=== PATIENT | female | born 1985 | race African-American/Black ===

== ENCOUNTER 2024-03-07 06:51 | Emergency (ER) | payer SELFPAY ==
[~2024-03-07] VITALS: Ht 160 cm; Wt 73.0 kg
[2024-03-07] MEDS ORDERED: ONDANSETRON HCL/PF 4 MG/2 ML VIAL ONE ×2 (07:26→10:38)
[2024-03-07] MEDS ORDERED: HYDROMORPHONE 1 MG/1 ML DISP.SYRIN ONE ×3 (07:27→10:38)
[2024-03-07] MEDS ORDERED: diphenhydrAMINE HCL 25 MG in IV D5W 50 ML IV ONE ×2 (07:30→11:00)
[2024-03-07 07:56] LABS: BASOPHILS % (AUTO) 0.5 % (0.0-2.0); EOSINOPHILS # (AUTO) 0.3 K/uL (0.0-0.7); EOSINOPHILS % (AUTO) 4.7 % (0.0-6.0); HEMATOCRIT 27 % (33-45); HEMOGLOBIN 8.1 g/dL (11.5-14.8); LYMPHOCYTES # (AUTO) 2.3 K/uL (0.8-4.8); LYMPHOCYTES % (AUTO) 38.7 % (20.0-44.0); MEAN CORPUSCULAR HEMOGLOBIN 24 PG (26.0-33.0); MEAN CORPUSCULAR HGB CONC 30 g/dl (31.0-36.0); MEAN CORPUSCULAR VOLUME 79 fL (82-100); MONOCYTES # (AUTO) 0.3 K/uL (0.1-1.30); MONOCYTES % (AUTO) 5.5 % (2.0-12.0); NEUTROPHILS # (AUTO) 3.1 K/uL (1.8-8.9); NEUTROPHILS % (AUTO) 50.6 % (43.0-81.0); PLATELET COUNT (AUTO) 335 K/uL (150-450); RED BLOOD CELL COUNT(AUTO) 3.43 MIL/uL (4.0-5.2); RED CELL DISTRIBUTION WIDTH 16.4 % (11.5-15.0); WHITE BLOOD COUNT (AUTO) 6.1 K/uL (4.3-11.0)
[2024-03-07] MEDS ORDERED: diphenhydrAMINE HCL 50 MG/ML VIAL ONE ×2 (07:57→10:38)
[2024-03-07] MEDS: IV NS 0.9% 1,000 ML BAG IV ONE (08:00)
[2024-03-07 08:01] LABS: ALBUMIN 2.8 g/dL (3.4-5.0); BILIRUBIN,DIRECT 0.1 mg/dL (0.0-0.2); BILIRUBIN,TOTAL 0.3 mg/dL (0.2-1.0); CALCIUM, SERUM 8.5 mg/dL (8.5-10.1); CREATININE 0.8 mg/dL (0.6-1.3); POTASSIUM 3.6 mmol/L (3.5-5.1); TOTAL PROTEIN, SERUM 6.6 g/dL (6.4-8.2)
[2024-03-07] MEDS: ONDANSETRON HCL/PF 4 MG/2 ML VIAL IVP ONE (08:05)
[2024-03-07] MEDS: diphenhydrAMINE HCL 50 MG/ML VIAL IV ONE ×2 (08:05→10:45)
[2024-03-07] MEDS: HYDROMORPHONE INJ 2 MG/ML DISP.SYRIN IV ONE (08:05)
[2024-03-07] MEDS: HYDROMORPHONE MDV 1 MG in IV D5W 50 ML IV ONE (10:03)
[2024-03-07] MEDS: HYDROMORPHONE MDV 2 MG in IV D5W 50 ML IV ONE (10:45)
[2024-03-07] MEDS: ONDANSETRON HCL/PF - ER 4 MG/2 ML VIAL IV ONE (10:45)
[2024-03-07] MEDS: HYDROMORPHONE 1 MG/1 ML DISP.SYRIN IV ONE (10:48)
[2024-03-07] MEDS ORDERED: ONDA4TAB11 PO (11:51)
[2024-03-07 12:16] VITALS: BP 138/74; TEMP 98.8; O2SAT 99
== END 2024-03-07 12:17 | disposition home or self-care (01) ==
LOC: ER 06:58
DX: D57.00 Hb-SS disease with crisis, unspecified (principal); Z88.5 Allergy status to narcotic agent; Z88.1 Allergy status to other antibiotic agents
CPT/HCPCS: 99285; 96365; 96375; 96361; 96376 ×2; 85025; 80048; 83690; 80076; 85045; 36415; 36410; J1200 ×2; J2405 ×3; J7030; J1170 ×3; J7060

== ENCOUNTER 2024-04-22 01:26 | Emergency (ER) | payer SELFPAY ==
[~2024-04-22] VITALS: Ht 172.7 cm; Wt 65.8 kg
[~2024-04-22 01:26] MED LIST: ONDA4TAB11 PO
[2024-04-22] MEDS ORDERED: HYDROMORPHONE 1 MG/1 ML DISP.SYRIN ONE (02:56)
[2024-04-22] MEDS ORDERED: ONDANSETRON HCL/PF 4 MG/2 ML VIAL ONE (02:56)
[2024-04-22] MEDS ORDERED: diphenhydrAMINE HCL 50 MG/ML VIAL ONE ×2 (03:02→03:21)
[2024-04-22] MEDS: IV NS 0.9% 1,000 ML BAG IV ONE (03:05)
[2024-04-22] MEDS: ONDANSETRON HCL/PF 4 MG/2 ML VIAL IVP ONE (03:08)
[2024-04-22] MEDS: diphenhydrAMINE HCL 50 MG/ML VIAL IV ONE (03:08)
[2024-04-22] MEDS: HYDROMORPHONE INJ 2 MG/ML DISP.SYRIN IV ONE (03:08)
[2024-04-22 03:15] LABS: BASOPHILS # (AUTO) 0.1 K/uL (0.0-0.2); BASOPHILS % (AUTO) 0.8 % (0.0-2.0); EOSINOPHILS # (AUTO) 0.2 K/uL (0.0-0.7); EOSINOPHILS % (AUTO) 2.3 % (0.0-6.0); HEMATOCRIT 31 % (33-45); HEMOGLOBIN 9.4 g/dL (11.5-14.8); LYMPHOCYTES # (AUTO) 2.8 K/uL (0.8-4.8); LYMPHOCYTES % (AUTO) 38.5 % (20.0-44.0); MEAN CORPUSCULAR HEMOGLOBIN 23 PG (26.0-33.0); MEAN CORPUSCULAR HGB CONC 31 g/dl (31.0-36.0); MEAN CORPUSCULAR VOLUME 75 fL (82-100); MONOCYTES # (AUTO) 0.4 K/uL (0.1-1.30); MONOCYTES % (AUTO) 6.1 % (2.0-12.0); NEUTROPHILS # (AUTO) 3.8 K/uL (1.8-8.9); NEUTROPHILS % (AUTO) 52.3 % (43.0-81.0); PLATELET COUNT (AUTO) 328 K/uL (150-450); RED BLOOD CELL COUNT(AUTO) 4.09 MIL/uL (4.0-5.2); RED CELL DISTRIBUTION WIDTH 18.2 % (11.5-15.0); WHITE BLOOD COUNT (AUTO) 7.3 K/uL (4.3-11.0)
[2024-04-22 03:26] LABS: INR 0.97 (0.91-1.10); PARTIAL THROMBOPLASTIN TIME 26.2 SEC (24.3-34.3); PROTHROMBIN TIME 10.3 SECS (9.2-11.1)
[2024-04-22 03:43] LABS: ALBUMIN 3.5 g/dL (3.4-5.0); CALCIUM, SERUM 8.9 mg/dL (8.5-10.1); POTASSIUM 3.6 mmol/L (3.5-5.1)
[2024-04-22 03:58] LABS: BILIRUBIN,DIRECT 0.1 mg/dL (0.0-0.2); BILIRUBIN,TOTAL 0.3 mg/dL (0.2-1.0); CREATININE 0.9 mg/dL (0.6-1.3); TOTAL PROTEIN, SERUM 7.6 g/dL (6.4-8.2)
[2024-04-22 04:39] VITALS: BP 128/79; TEMP 98.5; O2SAT 98
== END 2024-04-22 04:40 | disposition home or self-care (01) ==
LOC: ER 01:31
DX: D57.00 Hb-SS disease with crisis, unspecified (principal); Z88.5 Allergy status to narcotic agent; Z88.8 Allergy status to other drugs, medicaments and biological substances
CPT/HCPCS: 99284; 96374; 96375; 96361; 85025; 80048; 80076; 36415; 85730; 86850; J1200; J2405; J7030; J1170

== ENCOUNTER 2024-05-05 00:26 | Emergency (ER) | payer SELFPAY ==
[~2024-05-05] VITALS: Ht 172.7 cm; Wt 79.4 kg
[2024-05-05] MEDS ORDERED: ONDANSETRON HCL/PF 4 MG/2 ML VIAL ONE (01:33)
[2024-05-05] MEDS ORDERED: HYDROMORPHONE 1 MG/1 ML DISP.SYRIN ONE ×2 (01:34→02:23)
[2024-05-05] MEDS: IV NS 0.9% 1,000 ML BAG IV ONE (01:49)
[2024-05-05] MEDS: ONDANSETRON HCL/PF 4 MG/2 ML VIAL IVP ONE (01:49)
[2024-05-05] MEDS: HYDROMORPHONE 1 MG/1 ML DISP.SYRIN IV ONE ×2 (01:49→02:27)
[2024-05-05 01:53] LABS: BASOPHILS % (AUTO) 0.7 % (0.0-2.0); EOSINOPHILS # (AUTO) 0.1 K/uL (0.0-0.7); EOSINOPHILS % (AUTO) 1.8 % (0.0-6.0); HEMATOCRIT 32 % (33-45); HEMOGLOBIN 9.6 g/dL (11.5-14.8); LYMPHOCYTES # (AUTO) 3.1 K/uL (0.8-4.8); LYMPHOCYTES % (AUTO) 43.1 % (20.0-44.0); MEAN CORPUSCULAR HEMOGLOBIN 23 PG (26.0-33.0); MEAN CORPUSCULAR HGB CONC 30 g/dl (31.0-36.0); MEAN CORPUSCULAR VOLUME 77 fL (82-100); MONOCYTES # (AUTO) 0.3 K/uL (0.1-1.30); MONOCYTES % (AUTO) 4.8 % (2.0-12.0); NEUTROPHILS # (AUTO) 3.6 K/uL (1.8-8.9); NEUTROPHILS % (AUTO) 49.6 % (43.0-81.0); PLATELET COUNT (AUTO) 311 K/uL (150-450); RED CELL DISTRIBUTION WIDTH 19.6 % (11.5-15.0); WHITE BLOOD COUNT (AUTO) 7.2 K/uL (4.3-11.0)
[2024-05-05 02:01] LABS: CALCIUM, SERUM 8.8 mg/dL (8.5-10.1); CREATININE 0.9 mg/dL (0.6-1.3); INR 1.01 (0.91-1.10); PARTIAL THROMBOPLASTIN TIME 25.2 SEC (24.3-34.3); POTASSIUM 3.7 mmol/L (3.5-5.1); PROTHROMBIN TIME 10.7 SECS (9.2-11.1)
[2024-05-05 02:07] LABS: ALBUMIN 3.3 g/dL (3.4-5.0); BILIRUBIN,TOTAL 0.2 mg/dL (0.2-1.0); TOTAL PROTEIN, SERUM 7.1 g/dL (6.4-8.2)
[2024-05-05 02:47] VITALS: BP 154/86; TEMP 98.5; O2SAT 99
== END 2024-05-05 02:47 | disposition home or self-care (01) ==
LOC: ER 00:35
DX: D57.00 Hb-SS disease with crisis, unspecified (principal); R94.31 Abnormal electrocardiogram [ECG] [EKG]; R11.0 Nausea; Z88.8 Allergy status to other drugs, medicaments and biological substances; Z88.5 Allergy status to narcotic agent
CPT/HCPCS: 99284; 96374; 96361; 93005; 96376; 85025; 80048; 83690; 80076; 36415; 85730; J2405; J7030; J1170 ×2